=== PATIENT | female | born 1985 | race African-American/Black ===

== ENCOUNTER 2016-06-07 23:59 | Emergency (ER) | payer MEDICAID ==
[2016-06-08 02:54] LABS: URINE APPEARANCE CLOUDY; URINE BILIRUBIN NEG (NEG); URINE BLOOD NEG (NEG); URINE COLOR YELLOW; URINE GLUCOSE NEG (NEG); URINE KETONE TRACE (NEG); URINE LEUKOCYTE ESTERASE NEG (NEG); URINE NITRATE NEG (NEG); URINE PH 5.5 (5-8); URINE PROTEIN NEG (NEG)
[2016-06-08 03:00] LABS: CULTURE INDICATED? NO
[2016-06-11 15:44] LABS: CHLAMYDIA TRACH Not Detected (Not Detected); N GONOR Not Detected (Not Detected)
== END 2016-06-08 04:48 | disposition home or self-care (01) ==
LOC: CED 23:59
PROVIDERS: Nurse Practitioner Family
DX: N76.0 Acute vaginitis (principal); J06.9 Acute upper respiratory infection, unspecified; I10 Essential (primary) hypertension; Z90.710 Acquired absence of both cervix and uterus; Z98.890 Other specified postprocedural states; F17.210 Nicotine dependence, cigarettes, uncomplicated
CPT/HCPCS: 81003; 84703; 87491; 87591; 87808; 87905; 96372; 99284; J0696